=== PATIENT | male | born 1955 | race Caucasian/White ===

== ENCOUNTER 2016-12-11 11:19 | Outpatient (CLI) | payer BC ==
[2016-12-11 12:29] LABS: Hematocrit 49.7 % (42.0-52.0); Mean Platelet Volume 7.3 fL (7.4-10.4); Red Blood Cell (RBC) Count 5.11 mill/uL (4.70-6.10); White Blood Cell (WBC) Count 7.5 thou/uL (4.8-10.8)
== END 2016-12-11 11:20 | disposition home or self-care (01) ==
LOC: LABBT 11:19
PROVIDERS: ATTEND Orthopaedic Surgery
DX: Z01.812 Encounter for preprocedural laboratory examination (principal); L08.9 Local infection of the skin and subcutaneous tissue, unspecified
CPT/HCPCS: 85027

== ENCOUNTER 2016-12-13 11:03 | Day surgery (SDC) | payer BC ==
[2016-12-11 11:49] VITALS: BMI 34.7
[2016-12-13] MEDS ORDERED: Fentanyl 100 MCG/2 ML VIAL ONE ×3 (12:07→13:37)
[2016-12-13] MEDS ORDERED: Midazolam HCl 2 mg/2 ml Vial ONE (12:08)
[2016-12-13] MEDS ORDERED: HYDROcodone/Acetaminophen 5/325 mg Tablet ONE ×2 (14:11)
--- NOTE | 2016-12-14 00:45 | OP ---
DATE OF PROCEDURE: 12/13/2016 PREOPERATIVE DIAGNOSIS: Left small finger infection at the P2 segment. POSTOPERATIVE DIAGNOSIS: Left small finger infection at the P2 segment. PROCEDURE PERFORMED: Incision and drainage left small finger. STAFF: Fernando Reyez M.D. INSOLE DOUBLER: None. ANESTHESIA: Patient received LMA intubation. ESTIMATED BLOOD LOSS: Less than 10 mL TOURNIQUET TIME: 6 minutes. ANTIBIOTICS: One gram of vancomycin. Cultures x1. COMPLICATIONS: None. HISTORY OF PRESENT ILLNESS: Mr. Kaminski is a pleasant 61-year-old man who has had about 2 months of pain in his left small finger where he had a foreign body , he had an I\T\D and the patient works as a business manager. The patient had tenderness and pain to the touch. He is received oral antibiotics. I discussed with patient the risks and benefits of an I\T\D of left small finger to include pain, scar, bleeding, infection, damage to vital structures, decreased range of motion or strength and ability to find of loose body, understood these risks and benefits and elected to proceed. DESCRIPTION OF OPERATION: After timeout was performed, the patient's left small finger as the operative site. At completion of this, the patient's tourniquet was brought up and was left up for a total of 6 minutes. I made an incision down through the kind of granulomatous tissue and removed some of the skin superficially around the finger, I made a [place] style incision back towards the midline, towards the radial aspect of the finger proximally and distally from the old incision excised some of the subcutaneous fat as well as the skin that looked . I expanded the top of the flexor sheath. There was not any gross purulence noted throughout. I did take a culture of kind of a serous looking fluid. I could not find a loose body. I did look at the x-rays before and also could not find a loose body fragment. The wound was left opened and allowed to egress. I have packed with quarter inch gauze. The tourniquet down, controlled for some general ooze, but see no pulsatile bleeding. We then placed a soft tissue dressing. The patient did receive this completed vancomycin be sent home with p.o. Bactrim. We will receive packings [facility] for pain relief and follow up in my clinic in 1 week. AURA
== END 2016-12-13 14:55 ==
LOC: SDC 11:03
PROVIDERS: ATTEND Orthopaedic Surgery
PROC: 0H9GXZZ Drainage of Left Hand Skin, External Approach (ICD-10-PCS; principal; 2016-12-13)
DX: L08.9 Local infection of the skin and subcutaneous tissue, unspecified (principal); G47.33 Obstructive sleep apnea (adult) (pediatric); M19.90 Unspecified osteoarthritis, unspecified site; F41.9 Anxiety disorder, unspecified; Z79.1 Long term (current) use of non-steroidal anti-inflammatories (NSAID); Z79.82 Long term (current) use of aspirin; Z79.899 Other long term (current) drug therapy
CPT/HCPCS: 87070; 87077; 87186; 87205; 96374; J2250; J3010; J3370

== ENCOUNTER 2018-11-12 10:36 | Outpatient (CLI) | payer BC ==
--- NOTE | 2018-11-12 11:10 | RAD ---
EXAM: 4 views of the left knee HISTORY: Knee pain COMPARISON: None FINDINGS: No knee effusion is seen. There is no evidence of acute fracture or dislocation. Mild trico mpartmental degenerative changes are seen. No soft tissue swelling is present. IMPRESSION: No evidence of acute osseous abnormality.
--- NOTE | 2018-11-12 11:11 | RAD ---
EXAM: 2 views of the left hip HISTORY: Left hip pain COMPARISON: None FINDINGS: 2 views of the left hip shows no evidence of acute fracture or dislocation. No degenerative changes are seen. No soft tissue swelling is present. IMPRESSION: No evidence of acute osseous abnormality.
--- NOTE | 2018-11-12 11:17 | RAD ---
EXAM: 2 views of the lumbosacral spine HISTORY: Low back pain COMPARISON: None FINDINGS: 2 views of the lumbosacral spine shows normal height and alignment of the vertebral bodies and intervertebral discs without fracture or subluxation. Moderate osteophytes are seen throughout the lumbar spine. The sacroiliac joints are unremarkable. IMPRESSION: Moderate degenerative changes without acute osseous abnormality.
== END 2018-11-12 10:37 | disposition home or self-care (01) ==
LOC: BICRAD 10:36
PROVIDERS: ATTEND Family Medicine
DX: M54.5 Low back pain (principal); M25.559 Pain in unspecified hip; M25.569 Pain in unspecified knee; M47.816 Spondylosis without myelopathy or radiculopathy, lumbar region
CPT/HCPCS: 72100

== ENCOUNTER 2018-11-19 12:30 | Outpatient (CLI) | payer BC ==
--- NOTE | 2018-11-19 13:42 | CT ---
CT lumbar spine without contrast: HISTORY: Low back pain, sciatic leg pain. Injury 2 months ago after jumping off a tractor. Immediate pain radi ating down left leg. COMPARISON: No prior CT exams of the lumbar spine available FINDINGS: Vascular calcifications are seen in the abdominal aorta and involving the iliac arteries. Remainder o f the visualized retroperitoneal structures demonstrate a grossly normal nonenhanced CT appearance. No fracture or subluxation is seen involving the lumbar spine. Bridging osteophytes are present at th e T12-L1 and L1-2 levels with prominent anterior osteophytes at the L2-3 and L3-4 levels. L1-2: No significant central canal or neural foraminal narrowing is seen. L2-3: There is a mild disc osteophyte complex with resultant mild flattening the anterior aspect of t he thecal sac. Neural foramina are patent. L3-4: There is a mild disc osteophyte complex present. Facet hypertrophic changes are noted. There is generalized mild narrowing of the central spinal canal and mild bilateral neural foraminal narrowing. L4-5: There is a broad-based disc osteophyte complex with slightly greater central disc protrusion. P rominent facet hypertrophic changes and ligamentous thickening are seen. These findings result in severe narrowing of the central spinal canal as well as narrowing of the lateral recesses bilaterally . There is mild left and severe right-sided neural foraminal narrowing. L5-S1: A disc osteophyte complex is present at this level with loss of intervertebral disc height. Br oad-based disc osteophyte complex is present. Facet hypertrophic changes are noted with mild ligamentous thickening. There is moderate narrowing of the central spinal canal with severe left and moderate to severe right-sided neural foraminal narrowing. IMPRESSION: Multilevel degenerative changes in the lumbar spine greatest in the lower lumbar spine where there ar e severe degrees of neural foraminal narrowing as described above. In addition there is severe narrowing of the central spinal canal at the L4-5 level with moderate narrowing of the central spinal canal at the L5-S1 level.
== END 2018-11-19 12:31 | disposition home or self-care (01) ==
LOC: BICCT 12:30
PROVIDERS: ATTEND Family Medicine
DX: M54.40 Lumbago with sciatica, unspecified side (principal); M47.816 Spondylosis without myelopathy or radiculopathy, lumbar region; M48.061 Spinal stenosis, lumbar region without neurogenic claudication; M48.07 Spinal stenosis, lumbosacral region
CPT/HCPCS: 72131

== ENCOUNTER 2019-10-04 07:40 | Outpatient (CLI) | payer BC ==
--- NOTE | 2019-10-04 08:05 | RAD ---
Radiograph right knee 4 views: 10/04/2019 HISTORY: 64-year-old male with chronic right knee pain due to arthritis. FINDINGS: Small joint effusion. Moderate-sized superior and inferior patellar enthesophytes. Tiny patellar oste ophytes. Medial and lateral compartment joint spaces are maintained without significant osteophytosis. No erosions. No fracture. IMPRESSION: 1. Mild osteoarthrosis of patellofemoral compartment. 2. Small joint effusion.
--- NOTE | 2019-10-04 08:09 | RAD ---
XR Knee Lt 4 View STANDARD HISTORY: Left knee pain COMPARISON: 11/12/2018 FINDINGS: Mild degenerative changes are again seen. No fracture or dislocation is identified.
== END 2019-10-04 07:41 | disposition home or self-care (01) ==
LOC: BICRAD 07:40
PROVIDERS: ATTEND Family Medicine
DX: M17.0 Bilateral primary osteoarthritis of knee (principal); M25.461 Effusion, right knee; M22.2X1 Patellofemoral disorders, right knee

== ENCOUNTER 2021-04-09 09:33 | Outpatient (CLI) | payer BC, MEDICARE | END 2021-04-09 09:34 | disposition home or self-care (01) | LOC: BICRAD 09:33 | PROVIDERS: ATTEND Nurse Practitioner Family | DX: S59.902A Unspecified injury of left elbow, initial encounter (principal) ==

== ENCOUNTER 2021-04-19 10:21 | Outpatient (CLI) | payer BC | END 2021-04-19 10:22 | disposition home or self-care (01) | LOC: SCSMRI 10:21 | PROVIDERS: ATTEND Orthopaedic Surgery | DX: S46.312A Strain of muscle, fascia and tendon of triceps, left arm, initial encounter (principal) ==

== ENCOUNTER 2021-04-27 05:52 | Day surgery (SDC) | payer BC ==
[2021-04-25 10:34] VITALS: BMI 33.3
[2021-04-27] MEDS ORDERED: Fentanyl 250 MCG/5 ML VIAL ONE (06:37)
[2021-04-27] MEDS ORDERED: ceFAZolin 2 GM/DEX 5% 100 ML BAG ONE (07:17)
[2021-04-27] MEDS ORDERED: Rocuronium Bromide 10 MG/ML (10ML VIAL) ONE (07:36)
[2021-04-27] MEDS ORDERED: PROPOFOL 200 MG/20 ML VIAL ONE (07:36)
[2021-04-27] MEDS ORDERED: ePHEDrine 50 MG/ML VIAL ONE (07:36)
[2021-04-27] MEDS ORDERED: Lidocaine 1% PF 5 ML VIAL ONE (07:36)
[2021-04-27] MEDS ORDERED: Ondansetron PF 4 MG/2 ML Vial ONE (07:36)
[2021-04-27] MEDS ORDERED: Dexamethasone 20 MG/5 ML VIAL ONE (07:36)
[2021-04-27] MEDS ORDERED: Bupivacaine PF 0.5% 30 ML VIAL ONE (08:12)
[2021-04-27] MEDS ORDERED: SUGAMMADEX SODIUM 200 MG/2 ML VIAL ONE (08:34)
== END 2021-04-27 11:10 | disposition home or self-care (01) ==
LOC: SDC 05:52
PROVIDERS: ATTEND Orthopaedic Surgery
PROC: 0LM40ZZ Reattachment of Left Upper Arm Tendon, Open Approach (ICD-10-PCS; principal; 2021-04-27)
DX: S46.312A Strain of muscle, fascia and tendon of triceps, left arm, initial encounter (principal); I10 Essential (primary) hypertension; E78.5 Hyperlipidemia, unspecified; G25.81 Restless legs syndrome; G47.33 Obstructive sleep apnea (adult) (pediatric); E66.9 Obesity, unspecified; Z68.33 Body mass index [BMI] 33.0-33.9, adult; Z79.899 Other long term (current) drug therapy
CPT/HCPCS: J3010; S0020

== ENCOUNTER 2022-02-08 07:57 | Outpatient (CLI) | payer MEDICARE, BC ==
[2022-02-08 09:31] LABS: #Basophils 0.1 10x3/uL (0.0-0.2); #Eosinphils 0.1 10x3/uL (0.0-0.5); #Monocytes 0.6 10x3/uL (0.0-1.1); %Eosinophils 1.5 % (0.0-6.0); %Lymphocytes 22.3 % (18.0-47.0); %Monocytes 11.5 % (0.0-10.0); %Neutrophils 62.9 % (40.0-75.0); Hemoglobin 14.5 g/dL (13.5-17.5); Mean Corpuscular HGB CONC 33.6 g/dL (32.0-36.0); Mean Corpuscular Hemoglobin 32.3 pg (27.0-33.0); Mean Platelet Volume 10.2 fl (7.4-10.4); Platelet Count 250 10x3/uL (150-450); RBC Distribution Width 12.5 % (11.5-14.5); Red Blood Cell (RBC) Count 4.49 10x6/uL (4.32-5.72); White Blood Cell (WBC) Count 4.8 10x3/uL (3.5-10.5)
[2022-02-08 09:44] LABS: Prothrombin Time 10.4 sec (9.5-12.1)
[2022-02-08 10:05] LABS: Anion Gap 13 mmol/L (10-20); BUN (Urea Nitrogen) 17 mg/dL (8.4-25.7); Calc. Creatinine Clearance 0 mL/min (70-130); Calcium 9.4 mg/dL (7.8-10.44); Carbon Dioxide 26 mmol/L (23-31); Chloride 106 mmol/L (98-107); Estimated GFR 96; Glucose 96 mg/dL (80-115); Potassium 4.5 mmol/L (3.5-5.1); Sodium 140 mmol/L (136-145)
== END 2022-02-08 07:58 | disposition home or self-care (01) ==
LOC: LABBT 07:57
PROVIDERS: ATTEND Orthopaedic Surgery
DX: Z01.818 Encounter for other preprocedural examination (principal); M17.11 Unilateral primary osteoarthritis, right knee
CPT/HCPCS: 80048; 85025; 85610; 87081; 93005; 93010

== ENCOUNTER 2023-08-13 14:47 | Outpatient (CLI) | payer MEDICARE | END 2023-08-13 14:48 | disposition home or self-care (01) | LOC: SCSRAD 14:47 | PROVIDERS: ATTEND Nurse Practitioner Family | DX: M25.551 Pain in right hip (principal) ==

== ENCOUNTER 2023-08-19 10:16 | Inpatient (IN) | payer MEDICARE ==
[2023-08-19] MEDS ORDERED: Iopamidol-370 76% 500 ML MDV (1 ML CHARGE) ONE (10:37)
[2023-08-19 11:06] LABS: #Basophils Less than 0.03 10x3/uL (0.0-0.2); %Basophils 0.2 % (0.0-1.0); %Eosinophils 0.2 % (0.0-10.0); %Lymphocytes 9.4 % (21.0-51.0); %Monocytes 10.9 % (0.0-10.0); %Neutrophils 78.6 % (42.0-75.0); Hematocrit 43.1 % (42.0-52.0); Hemoglobin 14.6 g/dL (14.0-18.0); Mean Corpuscular HGB CONC 33.9 g/dL (32.0-36.0); Mean Corpuscular Hemoglobin 32.4 pg (27.0-31.0); Mean Corpuscular Volume 95.8 fL (78.0-98.0); Mean Platelet Volume 10.2 fL (7.4-10.4); Platelet Count 200 10x3/uL (130-400); RBC Distribution Width 13.2 % (11.5-14.5)
[2023-08-19 11:33] LABS: ALT (SGPT) 15 U/L (8-55); AST (SGOT) 17 U/L (5-34); Albumin 3.3 g/dL (3.4-4.8); Alkaline Phosphatase 124 U/L (40-110); Anion Gap 10 mmol/L (10-20); BUN (Urea Nitrogen) 17 mg/dL (8.4-25.7); Bilirubin, Total 1.5 mg/dL (0.2-1.2); Calc. Creatinine Clearance 0 mL/min (70-130); Calcium 9.6 mg/dL (7.8-10.44); Carbon Dioxide 23 mmol/L (23-31); Chloride 106 mmol/L (98-107); Estimated GFR 93; Globulin 3.8 g/dL (2.4-3.5); Glucose 112 mg/dL (80-115); Potassium 3.7 mmol/L (3.5-5.1); Protein, Total 7.1 g/dL (5.8-8.1); Sodium 135 mmol/L (136-145)
[2023-08-19] MEDS ORDERED: HYDROcodone/Acetaminophen 10/325 mg Tablet ONE (12:08)
[2023-08-19] MEDS ORDERED: Piperacillin/Tazobactam 3.375 GM VIAL ONE (12:10)
[2023-08-19] MEDS ORDERED: Sodium Chloride 0.9% 100 ML ONE (12:11)
[2023-08-19] MEDS ORDERED: Vancomycin (BATCH) 2 GM/500 ML BAG ONE (12:52)
[2023-08-19 13:27] LABS: Bacteria/HPF None Seen HPF (None Seen); Bilirubin Negative (Negative); Blood, Urine Negative (Negative); CAUTI Indications for Culture Dysuria,urgency,freq; Clarity Clear (Clear); Glucose, Urine (Dipstick) Normal (Negative); Ketone, Urine Negative (Negative); Leukocyte Negative Leu/uL (Negative); Nitrite Negative (Negative); Protein, Urine (Dipstick) 70 mg/dL (Neg-Trace); RBC/HPF 0-3 HPF (0-3); Specific Gravity, Urine 1.042 (1.002-1.036); Squamous Epithelial 0-3 HPF (0-3); Urobilinogen 12 mg/dL (Less than 2); WBC/HPF 0-3 HPF (0-3); pH, Urine 6.5 (5.0-9.0)
[2023-08-19 13:28] LABS: Urine Culture Reflex No No
[2023-08-19] MEDS ORDERED: HYDROcodone/Acetaminophen 10/325 mg Tablet PO PRN (14:34)
[2023-08-19] MEDS ORDERED: Acetaminophen 325 MG TAB PO PRN (14:34)
[2023-08-19] MEDS: Sodium Chloride 0.9% 1,000 ML IV SCH (15:26)
[2023-08-19] MEDS: Piperacillin/Tazobactam 3.375 GM in Sodium Chloride 0.9% 100 ML IVPB SCH (15:26)
[2023-08-19 16:44] VITALS: BMI 34.0
[2023-08-19] MEDS: rOPINIRole HCl 1 MG TAB PO SCH (19:18)
[2023-08-19] MEDS ORDERED: rOPINIRole HCl 1 MG TAB PO SCH (21:00)
[2023-08-19] MEDS ORDERED: Vancomycin 1 GM in Sodium Chloride 0.9% 250 ML 250 ML IVPB SCH (21:00)
[2023-08-19] MEDS: Vancomycin (BATCH) 1.25 GM in Premix 1 BAG IVPB SCH (22:35)
[2023-08-20 04:37] LABS: #Basophils 0.04 10x3/uL (0.0-0.2); %Basophils 0.4 % (0.0-1.0); %Eosinophils 1.4 % (0.0-10.0); %Lymphocytes 11.2 % (21.0-51.0); %Monocytes 11.4 % (0.0-10.0); %Neutrophils 75.2 % (42.0-75.0); Hematocrit 38.8 % (42.0-52.0); Hemoglobin 12.9 g/dL (14.0-18.0); Mean Corpuscular HGB CONC 33.2 g/dL (32.0-36.0); Mean Corpuscular Volume 96.3 fL (78.0-98.0); Mean Platelet Volume 10.4 fL (7.4-10.4); Platelet Count 174 10x3/uL (130-400); RBC Distribution Width 13.2 % (11.5-14.5); Red Blood Cell (RBC) Count 4.03 mill/uL (4.70-6.10)
[2023-08-20 05:05] LABS: Vancomycin, Random 27.3 ug/mL (See Comment)
[2023-08-20 05:06] LABS: Anion Gap 10 mmol/L (10-20); BUN (Urea Nitrogen) 14 mg/dL (8.4-25.7); Calc. Creatinine Clearance 122 mL/min (70-130); Calcium 8.8 mg/dL (7.8-10.44); Carbon Dioxide 24 mmol/L (23-31); Chloride 106 mmol/L (98-107); Estimated GFR 94; Glucose 110 mg/dL (80-115); Potassium 3.7 mmol/L (3.5-5.1); Sodium 136 mmol/L (136-145)
[2023-08-20] MEDS ORDERED: Amlodipine 5 MG TAB PO SCH (09:00)
[2023-08-20] MEDS: Amlodipine 10 MG TAB PO SCH (09:55)
[2023-08-20] MEDS: Enoxaparin 40 MG (0.4 mL) SYRINGE SC SCH (09:56)
[2023-08-20] MEDS: Vancomycin 1 GM in Premix 1 BAG IVPB SCH (11:41)
[2023-08-21 06:30] LABS: #Basophils 0.03 10x3/uL (0.0-0.2); %Basophils 0.4 % (0.0-1.0); %Eosinophils 2.4 % (0.0-10.0); %Lymphocytes 18.1 % (21.0-51.0); %Monocytes 13.7 % (0.0-10.0); Hematocrit 38.9 % (42.0-52.0); Hemoglobin 13.1 g/dL (14.0-18.0); Mean Corpuscular HGB CONC 33.7 g/dL (32.0-36.0); Mean Corpuscular Hemoglobin 31.6 pg (27.0-31.0); Mean Corpuscular Volume 93.7 fL (78.0-98.0); Mean Platelet Volume 10.3 fL (7.4-10.4); Platelet Count 192 10x3/uL (130-400); RBC Distribution Width 13.4 % (11.5-14.5); Red Blood Cell (RBC) Count 4.15 mill/uL (4.70-6.10)
[2023-08-21 06:45] LABS: Vancomycin, Random 15.1 ug/mL (See Comment)
[2023-08-21 06:48] LABS: Anion Gap 15 mmol/L (10-20); BUN (Urea Nitrogen) 10 mg/dL (8.4-25.7); Calc. Creatinine Clearance 122 mL/min (70-130); Calcium 8.5 mg/dL (7.8-10.44); Carbon Dioxide 23 mmol/L (23-31); Chloride 110 mmol/L (98-107); Estimated GFR 94; Glucose 105 mg/dL (80-115); Potassium 3.9 mmol/L (3.5-5.1); Sodium 144 mmol/L (136-145)
[2023-08-22] MEDS ORDERED: Piperacillin/Tazobactam 3.375 GM VIAL ONE (08:46)
[2023-08-22] MEDS ORDERED: Sodium Chloride 0.9% 100 ML ONE (08:46)
[2023-08-22] MEDS ORDERED: Bupivacaine 0.25% HCL 30 ML VIAL ONE (09:08)
[2023-08-22] MEDS ORDERED: Lidocaine 1% PF 5 ML VIAL ONE (09:12)
[2023-08-22] MEDS ORDERED: PROPOFOL 20 ML ONE (09:12)
[2023-08-22] MEDS ORDERED: Dexamethasone 20 MG/5 ML VIAL ONE (09:12)
[2023-08-22] MEDS ORDERED: Ondansetron PF 4 MG/2 ML Vial ONE (09:12)
[2023-08-22] MEDS ORDERED: fentaNYL PF 100 MCG/2 ML SYRINGE ONE (09:28)
[2023-08-22] MEDS ORDERED: ePHEDrine Sulfate 50 MG/10 ML VIAL ONE (09:41)
[2023-08-22] MEDS ORDERED: Promethazine HCl 25 MG/ML VIAL IM PRN (10:18)
[2023-08-22] MEDS ORDERED: Ondansetron HCl/PF 4 MG/2 ML Vial IVP PRN (10:18)
[2023-08-22] MEDS ORDERED: Dextrose 5% in Water 1,000 ML IV PRN (10:41)
[2023-08-22] MEDS ORDERED: Dextrose 50% Abboject 50 ML SYRINGE SLOW IVP PRN (10:41)
[2023-08-22] MEDS ORDERED: Ondansetron PF 4 MG/2 ML Vial IVP PRN (10:41)
[2023-08-22] MEDS ORDERED: Ipratropium/Albuterol 3 ML NEB NEB PRN (10:41)
[2023-08-22] MEDS ORDERED: hydrALAZINE 20 MG/ML VIAL SLOW IVP PRN (10:41)
[2023-08-22] MEDS ORDERED: Glucagon 1 MG/ML KIT IM PRN (10:41)
[2023-08-22] MEDS: Ketorolac Tromethamine 30 MG (1 mL) VIAL IVP SCH (11:36)
[2023-08-22] MEDS: Famotidine 20 MG TAB PO SCH (20:42)
[2023-08-23] MEDS: Docusate 100 MG CAP PO SCH (00:01)
[2023-08-24 07:30] VITALS: BP 136/79; TEMP 98
== END 2023-08-24 12:45 | disposition home or self-care (01) | DRG 603 ==
LOC: ERS 10:16 → SURG A 14:02 → OBSVTOIN 08-20 11:59
PROVIDERS: ADMIT Internal Medicine; ATTEND Family Medicine
PROC: 0X9 Anatomical Regions, Upper Extremities, Drainage (ICD-10-PCS; principal; 2023-08-22)
DX: L02.512 Cutaneous abscess of left hand (principal); L03.114 Cellulitis of left upper limb; I10 Essential (primary) hypertension; G25.81 Restless legs syndrome; R79.89 Other specified abnormal findings of blood chemistry; F17.220 Nicotine dependence, chewing tobacco, uncomplicated; Z79.82 Long term (current) use of aspirin; Z79.891 Long term (current) use of opiate analgesic; Z22.322 Carrier or suspected carrier of Methicillin resistant Staphylococcus aureus; Z79.899 Other long term (current) drug therapy
CPT/HCPCS: 36415; 80048; 80053; 80202; 81001; 82550; 83605; 84484; 85025; 86141; 87040; 87070; 87077; 87186; 87205; 90471; 90715; 93005; 96365; 96367; J0665; J1100; J1650; J1885; J2405; J2543; J2704; J3370; J3370-JW; J3490; J7050; Q9967

== ENCOUNTER 2023-12-12 12:29 | Outpatient (CLI) | payer MEDICARE | END 2023-12-12 12:30 | disposition home or self-care (01) | LOC: ULT 12:29 | PROVIDERS: ATTEND Orthopaedic Surgery | DX: M79.605 Pain in left leg (principal) ==

== ENCOUNTER 2024-03-01 07:30 | Outpatient (CLI) | payer MEDICARE | END 2024-03-01 07:31 | disposition home or self-care (01) | LOC: CT 07:30 | PROVIDERS: ATTEND Orthopaedic Surgery | DX: M17.12 Unilateral primary osteoarthritis, left knee (principal) ==

== ENCOUNTER 2024-03-05 09:01 | Outpatient (CLI) | payer MEDICARE ==
[2024-03-05 11:17] LABS: #Basophils 0.04 10x3/uL (0.0-0.2); %Basophils 0.7 % (0.0-1.0); %Eosinophils 1.7 % (0.0-10.0); %Lymphocytes 31.9 % (21.0-51.0); %Monocytes 12.9 % (0.0-10.0); %Neutrophils 51.9 % (42.0-75.0); Hematocrit 43.4 % (42.0-52.0); Hemoglobin 14.4 g/dL (14.0-18.0); Mean Corpuscular HGB CONC 33.2 g/dL (32.0-36.0); Mean Corpuscular Hemoglobin 31.1 pg (27.0-31.0); Mean Corpuscular Volume 93.7 fL (78.0-98.0); Mean Platelet Volume 10.3 fL (7.4-10.4); Platelet Count 225 10x3/uL (130-400); RBC Distribution Width 12.9 % (11.5-14.5); Red Blood Cell (RBC) Count 4.63 mill/uL (4.70-6.10)
[2024-03-05 11:41] LABS: Prothrombin Time 12.8 sec (12.0-14.7)
[2024-03-05 11:42] LABS: PTT 28.1 sec (22.9-36.1)
[2024-03-05 11:45] LABS: Anion Gap 12 mmol/L (10-20); BUN (Urea Nitrogen) 14 mg/dL (8.4-25.7); Calc. Creatinine Clearance 0 mL/min (70-130); Carbon Dioxide 26 mmol/L (23-31); Chloride 104 mmol/L (98-107); Estimated GFR 87; Glucose 85 mg/dL (80-115); Sodium 138 mmol/L (136-145)
== END 2024-03-05 09:02 | disposition home or self-care (01) ==
LOC: LABBT 09:01
PROVIDERS: ATTEND Orthopaedic Surgery
DX: Z01.812 Encounter for preprocedural laboratory examination (principal); M17.12 Unilateral primary osteoarthritis, left knee
CPT/HCPCS: 80048; 85025; 85610; 85730; 87081

== ENCOUNTER 2024-03-16 06:51 | Observation (INO) | payer MEDICARE ==
[2024-03-16] MEDS ORDERED: Vancomycin (BATCH) 300 ML ONE (07:53)
[2024-03-16] MEDS ORDERED: Sodium Chloride 0.9% 100 ML ONE (07:53)
[2024-03-16] MEDS ORDERED: Tranexamic Acid 1,000 MG/10 ML VIAL ONE (07:53)
[2024-03-16] MEDS ORDERED: Ropivacaine 0.5% HCl/PF (150 MG/30 ML VIAL) ONE (07:58)
[2024-03-16] MEDS ORDERED: fentaNYL 50 mcg/mL 1 mL Vial ONE (07:58)
[2024-03-16] MEDS ORDERED: Midazolam HCl 2 mg/2 ml Vial ONE (07:58)
[2024-03-16] MEDS ORDERED: CEFAZOLIN 2 GM VIAL ONE (08:15)
[2024-03-16] MEDS ORDERED: fentaNYL 50 mcg/mL 1 mL Vial SLOW IVP PRN (09:00)
[2024-03-16] MEDS ORDERED: HYDROcodone/Acetaminophen 10/325 mg Tablet PO PRN (09:00)
[2024-03-16] MEDS ORDERED: Zolpidem Tartrate 5 MG TAB PO PRN ×2 (09:00→11:00)
[2024-03-16] MEDS ORDERED: Promethazine HCl 25 MG/ML VIAL IM PRN ×2 (09:00→11:00)
[2024-03-16] MEDS ORDERED: Ropivacaine 0.2% 550 ML 550 ML NERVE BLCK SCH (09:00)
[2024-03-16] MEDS ORDERED: Ondansetron PF 4 MG/2 ML Vial IVP PRN ×2 (09:00→11:00)
[2024-03-16] MEDS ORDERED: traMADol HCl 50 MG TAB PO PRN ×2 (09:00)
[2024-03-16] MEDS ORDERED: PROPOFOL 20 ML ONE (09:01)
[2024-03-16] MEDS ORDERED: fentaNYL PF 100 MCG/2 ML SYRINGE ONE ×3 (09:01→11:12)
[2024-03-16] MEDS ORDERED: Lidocaine 1% PF 5 ML VIAL ONE (09:12)
[2024-03-16] MEDS ORDERED: Bupivacaine 0.25% HCL 30 ML VIAL ONE (09:38)
[2024-03-16] MEDS ORDERED: EPINEPHrine 1 MG/ML VIAL ONE (09:38)
[2024-03-16] MEDS ORDERED: PHENYLEPHRINE-NS 100 MCG/ML 10 ML SYRINGE ONE (10:30)
[2024-03-16] MEDS ORDERED: diphenhydrAMINE 25 MG CAP PO PRN (11:00)
[2024-03-16] MEDS ORDERED: Acetaminophen 325 MG TAB PO PRN (11:00)
[2024-03-16] MEDS ORDERED: Dexamethasone 20 MG/5 ML VIAL ONE (11:58)
[2024-03-16] MEDS ORDERED: Ondansetron PF 4 MG/2 ML Vial ONE (11:58)
[2024-03-16] MEDS: Ketorolac Tromethamine 30 MG (1 mL) VIAL IVP SCH (12:00)
[2024-03-16 15:48] VITALS: BMI 34.0
[2024-03-16] MEDS: CEFAZOLIN 2 GM in Sodium Chloride 0.9% 100 ML IVPB SCH (16:27)
[2024-03-16] MEDS: Sodium Chloride 0.9% 1,000 ML IV SCH (16:27)
[2024-03-16] MEDS: rOPINIRole HCl 1 MG TAB PO SCH (18:15)
[2024-03-16] MEDS: Senokot S 8.6-50 MG TAB PO SCH (20:48)
[2024-03-16] MEDS: Ferrous Gluconate 324 MG TAB PO SCH (20:49)
[2024-03-16] MEDS: Aspirin 81 mg Enteric Coated Tablet PO SCH (20:49)
[2024-03-17 05:15] LABS: Hematocrit 37.4 % (42.0-52.0); Hemoglobin 12.4 g/dL (14.0-18.0); Mean Corpuscular HGB CONC 33.2 g/dL (32.0-36.0); Mean Corpuscular Hemoglobin 31.6 pg (27.0-31.0); Mean Corpuscular Volume 95.2 fL (78.0-98.0); Platelet Count 187 10x3/uL (130-400); RBC Distribution Width 12.8 % (11.5-14.5); Red Blood Cell (RBC) Count 3.93 mill/uL (4.70-6.10)
[2024-03-17 07:52] VITALS: BP 158/78; TEMP 98.1
[2024-03-17] MEDS: Multivitamin W/ Minerals 1 TAB PO SCH (09:21)
[2024-03-17] MEDS: HYDROcodone/Acetaminophen 10/325 mg Tablet PO PRN (09:31)
== END 2024-03-17 10:45 | disposition home or self-care (01) ==
LOC: SDC 06:51 → SURG B 11:00 → SDC 15:42
PROVIDERS: ADMIT Orthopaedic Surgery; ATTEND Orthopaedic Surgery
PROC: 0SRD0JZ Replacement of Left Knee Joint with Synthetic Substitute, Open Approach (ICD-10-PCS; principal; 2024-03-16)
PROC: 3E0T3BZ Introduction of Anesthetic Agent into Peripheral Nerves and Plexi, Percutaneous Approach (ICD-10-PCS; 2024-03-16)
DX: M17.12 Unilateral primary osteoarthritis, left knee (principal)
CPT/HCPCS: 0055T; 27447; 64448; 36415; 85027; A4306; C1713; C1776; C1889; J0171; J0665; J1100; J1885; J2250; J2405; J2704; J2795; J3010; J3370; J7030

== ENCOUNTER 2024-11-23 15:05 | Outpatient (CLI) | payer MEDICARE | END 2024-11-23 15:06 | disposition home or self-care (01) | LOC: BICRAD 15:05 | PROVIDERS: ATTEND Family Medicine | DX: R60.0 Localized edema (principal); R06.02 Shortness of breath | CPT/HCPCS: 36415; 71046; 80053; 83880; 85025 ==